=== PATIENT | male | born 1995 | race African-American/Black ===

== ENCOUNTER 2019-08-28 18:59 | Emergency (ER) | payer SELFPAY ==
[~2019-08-28] VITALS: Ht 162.6 cm; Wt 90.7 kg
[2019-08-28 19:19] VITALS: BP 195/93
--- NOTE | 2019-08-28 19:23 | PHYS DOC ---
Adult General Chief Complaint Chief Complaint: KNEE INJURY HPI HPI Patient is a 23 year old male who presents to the ED today complaining of moderate sharp intermittent right knee pain that began this morning at 7 AM when he fell on his left knee. He states his right knee gave out resulting to the fall. Patient states the pain is worse on weight bearing. He reports immobilization sometimes relieves the pain. (MINI JEFFREY APRN) Review of Systems Review of Systems Constitutional: Denies fever or chills [] Musculoskeletal: Reports right knee pain Integument: Denies rash or skin lesions [] Neurologic: Denies headache, focal weakness or sensory changes [] All other systems were reviewed and found to be within normal limits, except as documented in this note. (MINI JEFFREY APRN) Allergies Allergies Allergies Coded Allergies Type Severity Reaction Last Updated Verified No Known Drug Allergies 08/28/19 No (HECTOR TARANGO DO) Physical Exam Physical Exam Constitutional: Well developed, well nourished, no acute distress, non-toxic appearance. [] Skin: Warm, dry, no erythema, no rash. [] Back: No tenderness, no CVA tenderness. [] Extremities: Right knee with no obvious deformity. Tenderness on palpation of the right anterior knee. Limited range of motion to the knee mostly due to pain. +2 right pedal pulse. Cap refill less than 2 seconds the right lower extremity. Sensation intact to the right lower extremity. Neurologic: Alert and oriented X 3, normal motor function, normal sensory function, no focal deficits noted. [] Psychologic: Affect normal, judgement normal, mood normal. [] (MINI JEFFREY APRN) Current Patient Data Vital Signs Vital Signs Date Time Temp Pulse Resp B/P (MAP) Pulse Ox O2 Delivery O2 Flow Rate FiO2 08/28/19 19:19 99.0 68 20 195/93 (127) 97 Room Air 99.0 (HECTOR TARANGO DO) EKG EKG [] (MINI JEFFREY APRN) Radiology/Procedures Radiology/Procedures []PROCEDURE: KNEE RIGHT 3V Three-view right knee dated 08/28/2019. No comparison available. Clinical data indication: Pain after fall. FINDINGS: 3 views of the right knee show normal bony alignment. No displaced fracture. No acute osseous or articular abnormality. No apparent joint effusion or loose body. IMPRESSION: No acute radiographic abnormality. Electronically signed by: Hector Anderson MD (08/28/2019 7:53 PM) [facility] DICTATED and SIGNED BY: HECTOR ANDERSON MD DATE: 08/28/191952 (MINI JEFFREY APRN) Course & Med Decision Making Course & Med Decision Making Pertinent Labs and Imaging studies reviewed. (See chart for details) This is a 23-year-old male patient presenting to the ED today with right knee pain that began at 7 AM this morning after falling. Right knee x-rays interpreted by radiologist were negative for any acute findings. Patient already has a knee splint applied by himself, neurovascular exam is intact. Ice elevation encouraged. Discharged with diclofenac and Medrol Dosepak. Follow-up with orthopedic doctor in 1-2 weeks. (MINI JEFFREY APRN) Dragon Disclaimer Dragon Disclaimer This electronic medical record was generated, in whole or in part, using a voice recognition dictation system. (MINI JEFFREY APRN) Departure Departure Impression: Primary Impression: Right knee pain Additional Impression: Fall Disposition: 01 HOME, SELF-CARE Condition: STABLE Referrals: NO PCP (PCP) STEPHANI PILLAI MD follow up in 1-2 weeks Patient Instructions: Knee Pain, [id number] Additional Instructions: You were evaluated in the emergency room for right knee pain, your right knee x- rays were negative for any acute findings. Continue wearing the knee splint/brace you have. Take the prescribed medications as ordered and follow up with orthopedic doctor provided or your own doctor in 1-2 weeks. Scripts Methylprednisolone (MEDROL) 4 Mg Tab.ds.pk 1 PKG PO UD, #1 PKG Prov: MINI JEFFREY APRN 08/28/19 Diclofenac Potassium (DICLOFENAC POTASSIUM) 50 Mg Tablet 1 TAB PO BID, #20 TAB 0 Refills Prov: MINI JEFFREY APRN 08/28/19 Attending Signature Attending Signature I have reviewed the PA/DATA OPERATIONS LEADER's note and plan of care. I was available for consultation as needed during the patient's visit in the emergency department. I agree with the clinical impression, plan, and disposition. (HECTOR TARANGO DO) Problem Qualifiers Primary Impression: Right knee pain Chronicity: acute Qualified Codes: M25.561 - Pain in right knee Additional Impression: Fall Encounter type: initial encounter Qualified Codes: W19.XXXA - Unspecified fall, initial encounter SJMINI DAVIS EVERT Aug 28, 2019 19:23 HECTOR TARANGO DO Aug 28, 2019 20:56
--- NOTE | 2019-08-28 19:57 | RAD ---
Three-view right knee dated 08/28/2019. No comparison available. Clinical data indication: Pain after fall. FINDINGS: 3 views of the right knee show normal bony alignment. No displaced fracture. No acute osseous or articular abnormality. No apparent joint effusion or loose body. IMPRESSION: No acute radiographic abnormality. Electronically signed by: Hector Anderson MD (08/28/2019 7:53 PM) [facility]
[2019-08-28] MEDS ORDERED: METH4TAB2 PO (20:17)
[2019-08-28] MEDS ORDERED: DICL50TA2 PO (20:17)
== END 2019-08-28 20:40 | disposition home or self-care (01) ==
LOC: ER 18:59
DX: G89.11 Acute pain due to trauma (principal); M25.561 Pain in right knee; W19.XXXA Unspecified fall, initial encounter; Y93.89 Activity, other specified; Y92.89 Other specified places as the place of occurrence of the external cause; Y99.8 Other external cause status
CPT/HCPCS: 73562; 99284